=== PATIENT | female | born 1965 | race Caucasian/White ===

== ENCOUNTER 2018-05-15 10:31 | Emergency (ER) | payer OTHER ==
[2018-05-15 12:13] LABS: Urine Blood 2+ (NEG); Urine Glucose NEGATIVE (NEG); Urine Protein NEGATIVE (NEG); Urine Specific Gravity 1.025 (1.005-1.030); Urine pH 5.5 (5.0-7.0)
[2018-05-15 12:14] LABS: Urine Bacteria <20 /HPF (<20)
[2018-05-15 12:15] LABS: Urine Culture Reflex Order NOT NEEDED
[2018-05-15] MEDS ORDERED: ONDANSETRON 4 MG/2 ML VIAL ONE (12:15)
[2018-05-15] MEDS ORDERED: MORPHINE 4 MG/ML SYR ONE (12:15)
[2018-05-15] MEDS ORDERED: NA CHLORIDE 0.9% 0 ML ONE (12:15)
--- NOTE | 2018-05-15 12:16 | RAD REPORT ---
EXAM DESCRIPTION: CT - Stone Protocol - 05/15/2018 11:53 am CLINICAL HISTORY: Flank pain. ABD PAIN COMPARISON: None TECHNIQUE: Axial images were obtained without oral or IV contrast. Lack of contrast limits solid org an and vascular assessment. The [id number] spans the entirety of the system partially obscuring uppermost abdomen and lung bases. Coronal reformatted images were obtained and reviewed. All CT scans are performed using dose optimization technique as appropriate and may include automated exposure control or mA/KV adjustment according to patient size. FINDINGS: The lower lung stratton are clear. The 2.7 cm hepatic lesion superolateral right lobe is likely a cyst. No aggressive liver lesion or bi liary dilatation. Spleen is unremarkable. The pancreas and adrenal glands are normal. No pathologic l ymphadenopathy in the abdomen or pelvis. 5-6 mm stone (700 HU) is present at the left UVJ resulting in mild left hydronephrosis. Additional sm all calculi are present in the left kidney largest measuring 2-3 mm in the inferior calyx. No right-s ided stone or hydronephrosis seen. No bowel obstruction, free air, free fluid or abscess. Normal appendix noted. No significant bony abnormality. IMPRESSION: 5-6 mm stone left UVJ resulting in mild left hydronephrosis. Additional left nephrolithiasis.
[2018-05-15 12:27] LABS: Absolute Lymphocytes (CBC) 1.1 K/uL (0.7-4.9); Absolute Monocytes 0.6 K/uL (0.1-1.3); Absolute Neutrophil 8.1 K/uL (1.8-8.0); Basophils % 0.5 % (0-1.3); Eosinophils % 0.2 % (0-4.4); Hematocrit 41.5 % (36.0-45.0); Lymphocytes % 11.6 % (15.3-44.8); MCH 32.5 pg (27.0-35.0); MCV 95.6 fL (80-100); MPV 8.2 fL (7.6-11.3); Monocytes % 6.2 % (3.3-12.3); RBC Red Blood Cell Count 4.35 M/uL (3.86-4.86)
[2018-05-15] MEDS ORDERED: TAMSULOSIN 0.4 MG SR CAP ONE (12:32)
[2018-05-15] MEDS ORDERED: KETOROLAC 30 MG/ML INJ ONE (12:32)
[2018-05-15] MEDS ORDERED: CEFTRIAXONE/SWI 1gm 1 GM/10 ML SYR ONE (12:33)
[2018-05-15 12:52] LABS: Albumin 4.1 g/dL (3.4-5.0); Bilirubin Direct 0.2 mg/dL (0-0.2); Bilirubin Total 0.5 mg/dL (0.2-1.0); Potassium 3.7 mmol/L (3.5-5.1); Protein, Total 8.4 g/dL (6.4-8.2)
[2018-05-15] MEDS ORDERED: NA CHLORIDE 0.9% 1,000 ML ONE (13:16)
--- NOTE | 2018-05-15 13:42 | EDPHYS ---
Physician Documentation [facility] Name: Dea Owens Age: 52 yrs Sex: Female : 1965 Arrival Date: 05/15/2018 Time: 10:34 Bed 13 Private MD: Elder Key C ED Physician Hieu Hough HPI: 05/15 11:30 This 52 yrs old Female presents to ER via Ambulatory with complaints of jmm Possible Kidney Stone. 11:30 The patient presents with abdominal pain left flank. The symptoms radiate to abdomen. jmm Associated signs and symptoms: Pertinent positives: nausea and vomiting. This is a 52 year old female with a history of hypothyroidism that presents to the ED with left flank pain beginning earlier today. Patient states having multiple episodes of vomiting. Denies fever. Denies previous history of kidney stones. States she recently began a weight loss program. . [employer]: 11:25 LMP N/A - Post-menopause ph Historical: - Allergies: 11:28 No Known Allergies; ph - Home Meds: 11:28 levothyroxine oral [Active]; phentermine oral oral [Active]; ph - PMHx: 11:28 Hypothyroidism; ph - PSHx: 11:28 D \T\ C; Knee surgery; ph - Immunization history:: Adult Immunizations unknown. - Social history:: Smoking status: Patient/guardian denies using tobacco. - Ebola Screening: : No symptoms or risks identified at this time. ROS: 11:47 Constitutional: Negative for fever, chills, and weight loss, Cardiovascular: Negative jmm for chest pain, palpitations, and edema. 11:47 Skin: Negative for injury, rash, and discoloration, Neuro: Negative for headache, weakness, numbness, tingling, and seizure. 11:47 Abdomen/GI: Positive for abdominal pain, nausea and vomiting. 11:47 Back: Positive for flank pain, on the left. 11:47 All other systems are negative. Exam: 11:47 Head/Face: atraumatic. Chest/axilla: Normal chest wall appearance and motion. jmm Cardiovascular: Regular rate and rhythm. No edema appreciated Respiratory: Normal respirations, no respiratory distress appreciated 11:47 Constitutional: The patient appears alert, awake, uncomfortable. 11:47 Abdomen/GI: Inspection: abdomen appears normal, Bowel sounds: normal, Palpation: soft, moderate abdominal tenderness, in the left lower quadrant. 11:47 Back: CVA tenderness, that is mild, is noted on the left. 11:47 Musculoskeletal/extremity: ROM: intact in all extremities. 11:47 Skin: Appearance: Color: normal in color. 11:47 Neuro: Orientation: is normal, Mentation: is normal, Memory: is normal. 11:47 Psych: Behavior/mood is pleasant, cooperative. Vital Signs: 11:25 BP 146 / 100; Pulse 59; Resp 20; Temp 99.2(TE); Pulse Ox 100% on R/A; Weight 84.37 kg; ph Height 5 ft. 3 in. (160.02 cm); Pain 9/10; 12:25 BP 156 / 80; Pulse 43; Resp 16; Pulse Ox 100% on R/A; dh3 13:04 BP 137 / 78; Pulse 49; Resp 19; Pulse Ox 98% on R/A; dh3 14:00 BP 121 / 76; Pulse 50; Resp 18; Pulse Ox 100% on R/A; rb1 14:45 BP 132 / 75; Pulse 46; Resp 15; Pulse Ox 100% on R/A; rb1 11:25 Body Mass Index 32.95 (84.37 kg, 160.02 cm) ph MDM: 11:30 Patient medically screened. [facility] 12:42 Data reviewed: vital signs, nurses notes. rene 13:41 Data reviewed: lab test result(s), radiologic studies, CT scan. Counseling: I had a [facility] detailed discussion with the patient and/or guardian regarding: the historical points, exam findings, and any diagnostic results supporting the discharge/admit diagnosis, radiology results, the need for outpatient follow up, to return to the emergency department if symptoms worsen or persist or if there are any questions or concerns that arise at home. 13:41 Response to treatment: the patient's symptoms have markedly improved after treatment. rene 13:41 ED course: Patient states feeling much better and her pain is relieved. patient advised [facility] to follow up with urology and given strict return precautions. the patient understood and agree with the plan of care. . 05/15 11:35 Order name: Amylase, Serum; Complete Time: 12:52 [facility] 05/15 11:35 Order name: Basic Metabolic Panel; Complete Time: 12:52 [facility] 05/15 11:35 Order name: CBC with Diff; Complete Time: 12:52 [facility] 05/15 11:35 Order name: Creatinine for Radiology; Complete Time: 12:52 [facility] 05/15 11:35 Order name: Hepatic Function; Complete Time: 12:52 [facility] 05/15 11:35 Order name: Lipase; Complete Time: 12:52 [facility] 05/15 11:35 Order name: Urine Microscopic Only; Complete Time: 12:19 [facility] 05/15 11:35 Order name: CT Stone Protocol; Complete Time: 12:19 [facility] 05/15 11:51 Order name: Urine Dipstick--Ancillary (enter results); Complete Time: 12:19 05/15 11:35 Order name: IV Saline Lock; Complete Time: 12:15 [facility] 05/15 11:35 Order name: Labs collected and sent; Complete Time: 12:15 [facility] 05/15 11:35 Order name: Urine Dipstick-Ancillary (obtain specimen); Complete Time: 12:15 [facility] Administered Medications: 12:15 Drug: morphine 4 mg Route: IVP; Site: left antecubital; hb 12:30 Follow up: Response: No adverse reaction; Pain is unchanged, physician notified rb1 12:15 Drug: Zofran 4 mg Route: IVP; Site: left antecubital; hb 12:30 Follow up: Response: No adverse reaction; Nausea is decreased rb1 12:15 Drug: NS 0.9% 1000 ml Route: IV; Rate: 1 bolus; Site: left antecubital; hb 14:09 Follow up: IV Status: Completed infusion rb1 12:30 Drug: Ketorolac 30 mg Route: IVP; Site: left antecubital; rb1 12:45 Follow up: Response: No adverse reaction; Pain is decreased rb1 12:30 Drug: Flomax 0.4 mg Route: PO; rb1 13:00 Follow up: Response: No adverse reaction rb1 12:30 Drug: Rocephin 1 grams Route: IV; Rate: calculated rate; Site: left antecubital; rb1 12:39 CANCELLED (wrong order): Rocephin - (cefTRIAXone) 1 grams IVPB once over 30 mins; (mix rb1 in 50 mL NS) 14:52 CANCELLED (Provider discretion; ok to discharge): NS 0.9% 1000 ml IV at 1 bolus Per rb1 protocol; 1000 mL bolus Disposition: 05/16 06:42 Co-signature as Attending Physician, Hieu Hough MD I agree with the assessment and bridgett plan of care. Disposition: 05/15/18 13:42 Discharged to Home. Impression: Calculus of kidney and ureter, Urinary tract infection, site not specified. - Condition is Stable. - Discharge Instructions: Kidney Stones, Urinary Tract Infection, Adult. - Prescriptions for Zofran ODT 4 mg Oral tablet,disintegrating - place 1 tablet by TRANSLINGUAL route every 4-6 hours; 20 tablet. Cephalexin 500 mg Oral Capsule - take 1 capsule by ORAL route 2 times per day for 10 days; 20 capsule. Tylenol- Codeine #3 300-30 mg Oral Tablet - take 1 tablet by ORAL route every 6 hours As needed; 20 tablet. Flomax 0.4 mg Oral Capsule, Sust. Release 24 hr - take 1 capsule by ORAL route once daily 1/2 hour following the same meal each day; 30 capsule. - Medication Reconciliation Form, Thank You Letter, Antibiotic Education, Prescription Opioid Use form. - Follow up: Kiley Benntet MD; When: 2 - 3 days; Reason: Recheck today's complaints, Continuance of care, Re-evaluation by your physician. Signatures: Dispatcher [employer] EDMS Hieu Hough MD MD cha Mickail, Joel, PA PA [facility] Dea Camejo, RN RN Guera Epperson, RN RN rb1 Kita Centeno RN RN Corrections: (The following items were deleted from the chart) 05/15 12:39 12:21 Rocephin - (cefTRIAXone) 1 grams IVPB once over 30 mins; (mix in 50 mL NS) rb1 ordered. [facility] 12:39 12:38 Rocephin - (cefTRIAXone) 1 grams IVPB once over 30 mins; (mix in 50 mL NS) given. rb1 [facility] 12:39 12:39 Rocephin - (cefTRIAXone) 1 grams IVPB once over 30 mins; (mix in 50 mL NS) rb1 ordered. [facility] 14:52 12:53 NS 0.9% 1000 ml IV at 1 bolus Per protocol; [address] [facility] rb1 14:52 14:51 NS 0.9% 1000 ml IV at 1 bolus Per protocol; 1000 mL bolus ordered. rb1 rb1 14:57 13:42 05/15/2018 13:42 Discharged to Home. Impression: Calculus of kidney and ureter; rb1 Urinary tract infection, site not specified. Condition is Stable. Forms are Medication Reconciliation Form, Thank You Letter, Antibiotic Education, Prescription Opioid Use. Follow up: Kiley Bennett; When: 2 - 3 days; Reason: Recheck today's complaints, Continuance of care, Re-evaluation by your physician. rene
--- NOTE | 2018-05-15 13:42 | ER ---
Nurse's Notes [facility] Name: Dea Owens Age: 52 yrs Sex: Female : 1965 Arrival Date: 05/15/2018 Time: 10:34 Bed 13 Private MD: Elder Key C Diagnosis: Calculus of kidney and ureter;Urinary tract infection, site not specified Presentation: 05/15 11:23 Presenting complaint: Patient states: " I started getting uncomfortable when I was in [place] and then I started vomiting. I've never had a kidney stone before but I think that may be what it is." Pt reports R sided back pain that radiates to R flank and RLQ, also reports N/V. Transition of care: patient was not received from another setting of care. Onset of symptoms was May 15, 2018. Risk Assessment: Do you want to hurt yourself or someone else? Patient reports no desire to harm self or others. Initial Sepsis Screen: Does the patient meet any 2 criteria? No. Patient's initial sepsis screen is negative. Does the patient have a suspected source of infection? No. Patient's initial sepsis screen is negative. Care prior to arrival: None. 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 - Social history:: Smoking status: Patient/guardian denies using tobacco. - Ebola Screening: : No symptoms or risks identified at this time. Screenin:45 Abuse screen: Denies threats or abuse. Denies injuries from another. Nutritional hb screening: No deficits noted. Tuberculosis screening: No symptoms or risk factors identified. Fall Risk None identified. Assessment: 11:45 General: Appears in no apparent distress. uncomfortable, Behavior is calm, cooperative. hb Pain: Pain currently is 10 out of 10 on a pain scale. Neuro: Level of Consciousness is awake, alert, obeys commands, Oriented to person, place, time, situation. Cardiovascular: Heart tones S1 S2 present Capillary refill < 3 seconds Patient's skin is warm and dry. Respiratory: Airway is patent Trachea midline Respiratory effort is even, unlabored, Respiratory pattern is regular, symmetrical, Breath sounds are clear bilaterally. GI: Abdomen is flat, Bowel sounds present X 4 quads. Abd is soft and non tender X 4 quads. : Reports urinary frequency. EENT: No signs and/or symptoms were reported regarding the EENT system. Derm: Skin is pink, warm \\T\\ dry. Musculoskeletal: Reports pain in low back that radiates to lower abdomen. 12:45 Reassessment: Patient appears in no apparent distress at this time. Patient and/or rb1 family updated on plan of care and expected duration. Pain level reassessed. Patient is alert, oriented x 3, equal unlabored respirations, skin warm/dry/pink. 13:45 Reassessment: Patient appears in no apparent distress at this time. Patient states rb1 feeling better. Patient states symptoms have improved. 14:45 Reassessment: Patient appears in no apparent distress at this time. Patient and/or rb1 family updated on plan of care and expected duration. Pain level reassessed. Patient is alert, oriented x 3, equal unlabored respirations, skin warm/dry/pink. at bedside. Vital Signs: 11:25 BP 146 / 100; Pulse 59; Resp 20; Temp 99.2(TE); Pulse Ox 100% on R/A; Weight 84.37 kg; ph Height 5 ft. 3 in. (160.02 cm); Pain 9/10; 12:25 BP 156 / 80; Pulse 43; Resp 16; Pulse Ox 100% on R/A; dh3 13:04 BP 137 / 78; Pulse 49; Resp 19; Pulse Ox 98% on R/A; dh3 14:00 BP 121 / 76; Pulse 50; Resp 18; Pulse Ox 100% on R/A; rb1 14:45 BP 132 / 75; Pulse 46; Resp 15; Pulse Ox 100% on R/A; rb1 11:25 Body Mass Index 32.95 (84.37 kg, 160.02 cm) ph ED Course: 10:34 Patient arrived in ED. sb2 10:35 Elder Key MD is Private Physician. sb2 11:22 Abdifatah Rojas PA is PHCP. jmm 11:22 Hieu Hough MD is Attending Physician. jmm 11:25 Triage completed. ph 11:28 Arm band placed on. ph 11:35 Kita Centeno, ALFIE is Primary Nurse. hb 11:52 CT completed. Patient tolerated procedure well. Patient moved back from CT. kw1 11:53 CT Stone Protocol In Process Unspecified. EDMS 12:00 Patient has correct armband on for positive identification. Placed in gown. Bed in low rb1 position. Call light in reach. Side rails up X 1. Pulse ox on. NIBP on. 12:15 Inserted saline lock: 22 gauge in left antecubital area, using aseptic technique. Blood rb1 collected. 13:42 Kiley Bennett MD is Referral Physician. [facility] 14:56 No provider procedures requiring assistance completed. IV discontinued, intact, rb1 bleeding controlled, No redness/swelling at site. Pressure dressing applied. Administered Medications: 12:15 Drug: morphine 4 mg Route: IVP; Site: left antecubital; hb 12:30 Follow up: Response: No adverse reaction; Pain is unchanged, physician notified rb1 12:15 Drug: Zofran 4 mg Route: IVP; Site: left antecubital; hb 12:30 Follow up: Response: No adverse reaction; Nausea is decreased rb1 12:15 Drug: NS 0.9% 1000 ml Route: IV; Rate: 1 bolus; Site: left antecubital; hb 14:09 Follow up: IV Status: Completed infusion rb1 12:30 Drug: Ketorolac 30 mg Route: IVP; Site: left antecubital; rb1 12:45 Follow up: Response: No adverse reaction; Pain is decreased rb1 12:30 Drug: Flomax 0.4 mg Route: PO; rb1 13:00 Follow up: Response: No adverse reaction rb1 12:30 Drug: Rocephin 1 grams Route: IV; Rate: calculated rate; Site: left antecubital; rb1 12:39 CANCELLED (wrong order): Rocephin - (cefTRIAXone) 1 grams IVPB once over 30 mins; (mix rb1 in 50 mL NS) 14:52 CANCELLED (Provider discretion; ok to discharge): NS 0.9% 1000 ml IV at 1 bolus Per rb1 protocol; 1000 mL bolus Outcome: 13:42 Discharge ordered by . jmm 14:56 Discharged to home ambulatory, with family. rb1 14:56 Condition: stable 14:56 Discharge instructions given to patient, Instructed on discharge instructions, follow up and referral plans. medication usage, Demonstrated understanding of instructions, follow-up care, medications, Prescriptions given X 4. 14:57 Patient left the ED. rb1 Signatures: Dispatcher [employer] EDMS Abdifatah Rojas PA PA jmm Hall, Patricia, RN RN ph Barber, Rebecca RN RN rb1 Kita Centeno RN RN Aparna Ojeda 3 Gayla Lopez 1 Karen Rowley sb2 Corrections: (The following items were deleted from the chart) 12:39 12:30 Rocephin - (cefTRIAXone) 1 grams IVPB in left antecubital over 30 mins rb1 rb1
== END 2018-05-15 14:57 | disposition home or self-care (01) ==
LOC: ER 10:31
DX: N20.2 Calculus of kidney with calculus of ureter (principal); N39.0 Urinary tract infection, site not specified; E03.9 Hypothyroidism, unspecified
CPT/HCPCS: 36415; 74176; 76377; 80048; 80076; 81003; 81015; 82150; 83690; 85025; 96361; 96374; 96375; 99284; J0696; J2405; J7030

== ENCOUNTER 2024-11-10 07:13 | Emergency (ER) | payer OTHER ==
[2024-11-10] MEDS ORDERED: ONDANSETRON 4 MG/2 ML VIAL ONE (07:35)
[2024-11-10] MEDS ORDERED: KETOROLAC 30 MG/ML INJ ONE (07:35)
[2024-11-10] MEDS ORDERED: FAMOTIDINE 20 MG/2 ML VIAL IV ONE (07:36)
[2024-11-10] MEDS ORDERED: MORPHINE 2 MG/ML SYR ONE (07:36)
[2024-11-10] MEDS ORDERED: NA CHLORIDE 0.9% 1,000 ML ONE (07:36)
[2024-11-10 07:52] LABS: Specific Gravity 1.021 (1.005-1.030); Urine Bacteria <20 /HPF (<20); Urine Bilirubin NEGATIVE (Negative); Urine Blood 1+ (Negative); Urine Clarity Extremely Turbid (Clear); Urine Color Yellow (Yellow); Urine Culture Reflex Order NOT NEEDED; Urine Glucose NEGATIVE (Negative); Urine Ketones TRACE (Negative); Urine Microscopic Reflex YN ORDER UMIC; Urine Mucus Slight /HPF (None Seen); Urine Nitrite NEGATIVE (Negative); Urine Protein NEGATIVE (Negative); Urine RBC <5 /HPF (None Seen); Urine Urobilinogen Normal (Normal); Urine WBC <5 /HPF (<5); Urine pH 5.5 (5.0-7.0)
[2024-11-10 08:04] LABS: Absolute Lymphocytes (CBC) 1.3 K/uL (0.7-4.9); Absolute Monocytes 0.4 K/uL (0.1-1.3); Basophils % 0.5 % (0-1.3); Eosinophils % 0.7 % (0-4.4); Hematocrit 40.1 % (36.0-45.0); Hemoglobin 13.4 g/dL (12.0-15.0); Lymphocytes % 27.9 % (15.3-44.8); MCH 32.9 pg (27.0-35.0); MCHC 33.5 g/dL (32.0-36.0); MCV 98.4 fL (80-100); MPV 7.5 fL (7.6-11.3); Monocytes % 8.3 % (3.3-12.3); Neutrophils % 62.6 % (41.7-73.7); Platelets 249 thou/uL (152-406); RBC Red Blood Cell Count 4.07 M/uL (3.86-4.86); Red Cell Distribution Width 13.1 % (12.1-15.2)
[2024-11-10 08:06] LABS: Albumin 3.5 g/dL (3.4-5.0); Anion Gap 8.9 mEq/L (5.0-15.0); Bilirubin Total 0.4 mg/dL (0.2-1.0); Globulin 3.5 g/dL (2.3-3.5); Potassium 3.9 mEq/L (3.5-5.1)
--- NOTE | 2024-11-10 08:34 | RAD REPORT ---
EXAMINATION: CT ABDOMEN AND PELVIS WITH CONTRAST CLINICAL INDICATION: ABD PAIN TECHNIQUE: CT abdomen and pelvis was performed, after the administration of IV contrast, [facility]. Axial, sagittal and coronal reconstructions were obtained. One or more of the following dose reduction techniques were used: Automated exposure control, adjustment of the mA and k V according to patient size, and iterative reconstruction. Unless otherwise specified, incidental findings do not require dedicated imaging follow-up. COMPARISON: No prior exam. FINDINGS: LOWER CHEST: The visualized lung bases are clear. LIVER: Normal in size and contour. 22 mm benign cyst lateral right lobe of the liver. Grossly unremar kable gallbladder. SPLEEN: Normal size. No focal lesion. PANCREAS: No mass, ductal dilation, or chi-pancreatic fluid. ADRENALS: Normal; no mass. KIDNEYS: Normal size and contour. No hydronephrosis. GASTROINTESTINAL TRACT: No evidence of free air, significant intra-abdominal free fluid, bowel obstru ction or abscess. Moderate stool is retained throughout the colon. APPENDIX: Normal appendix. LYMPH NODES: No lymphadenopathy. MUSCULOSKELETAL: Moderate L5-S1 degenerative change. ADDITIONAL FINDINGS: Prominent uterus containing several presumed cystic lesions may be degenerating fibroids, but assessment is limited on CT. IMPRESSION: No acute abnormalities seen in the abdomen or pelvis. Uterine findings may be better assessed by nonemergent pelvic ultrasound follow-up.
--- NOTE | 2024-11-10 09:43 | EDPHYS ---
Physician Documentation [facility] Name: Dea Owens Age: 59 yrs Sex: Female : 1965 Arrival Date: 11/10/2024 Time: 07:13 Bed 23 Private MD: ANTONI Physician Hieu Hough HPI: 11/10 07:30 This 59 yrs old Female presents to ER via Ambulatory with complaints of bridgett Abdominal Pain, Nausea. 07:30 The patient presents to the emergency department with nausea, abdominal pain, of the bridgett posterior aspect of right lateral abdomen, anterior aspect of right lateral abdomen and right lower quadrant. Onset: The symptoms/episode began/occurred 1 week(s) ago. Possible causes: unknown. The symptoms are aggravated by nothing. The symptoms are alleviated by nothing. Associated signs and symptoms: The patient has no apparent associated signs or symptoms. Severity of symptoms: At their worst the symptoms were moderate in the emergency department the symptoms are unchanged. The patient has not experienced similar symptoms in the past. Historical: - Allergies: 07:21 No Known Allergies; ss - Home Meds: 07:21 levothyroxine oral [Active]; Flagyl [Active]; Cipro Oral [Active]; ss - PMHx: 07:21 Hypothyroidism; ss - Immunization history:: Adult Immunizations up to date, Client reports receiving the 2nd dose of the Covid vaccine, Last tetanus immunization: unknown. - Infectious Disease History:: Denies. - Social history:: Smoking status: Patient denies any tobacco usage or history of. ROS: 07:31 Constitutional: Negative for fever, chills, and weight loss, Eyes: Negative for injury, bridgett pain, redness, and discharge, ENT: Negative for injury, pain, and discharge, Neck: Negative for injury, pain, and swelling, Cardiovascular: Negative for chest pain, palpitations, and edema, Respiratory: Negative for shortness of breath, cough, wheezing, and pleuritic chest pain, : Negative for injury, bleeding, discharge, and swelling, MS/Extremity: Negative for injury and deformity, Skin: Negative for injury, rash, and discoloration, Neuro: Negative for headache, weakness, numbness, tingling, and seizure, Psych: Negative for depression, anxiety, suicide ideation, homicidal ideation, and hallucinations, Allergy/Immunology: Negative for hives, rash, and allergies, Endocrine: Negative for neck swelling, polydipsia, polyuria, polyphagia, and marked weight changes, Hematologic/Lymphatic: Negative for swollen nodes, abnormal bleeding, and unusual bruising, 07:31 Abdomen/GI: Positive for abdominal pain, of the posterior aspect of right lateral abdomen and right lower quadrant, Exam: 07:31 Constitutional: This is a well developed, well nourished patient who is awake, alert, bridgett and in no acute distress. Head/Face: Normocephalic, atraumatic. Eyes: Pupils equal round and reactive to light, extra-ocular motions intact. Lids and lashes normal. Conjunctiva and sclera are non-icteric and not injected. Cornea within normal limits. Periorbital areas with no swelling, redness, or edema. ENT: Nares patent. No nasal discharge, no septal abnormalities noted. Tympanic membranes are normal and external auditory canals are clear. Oropharynx with no redness, swelling, or masses, exudates, or evidence of obstruction, uvula midline. Mucous membranes moist. Neck: Trachea midline, no thyromegaly or masses palpated, and no cervical lymphadenopathy. Supple, full range of motion without nuchal rigidity, or vertebral point tenderness. No Meningismus. Chest/axilla: Normal chest wall appearance and motion. Nontender with no deformity. No lesions are appreciated. Cardiovascular: Regular rate and rhythm with a normal S1 and S2. No gallops, murmurs, or rubs. Normal PMI, no JVD. No pulse deficits. Respiratory: Lungs have equal breath sounds bilaterally, clear to auscultation and percussion. No rales, rhonchi or wheezes noted. No increased work of breathing, no retractions or nasal flaring. Female : Normal external genitalia. Skin: Warm, dry with normal turgor. Normal color with no rashes, no lesions, and no evidence of cellulitis. MS/ Extremity: Pulses equal, no cyanosis. Neurovascular intact. Full, normal range of motion., bilateral aka Neuro: Awake and alert, GCS 15, oriented to person, place, time, and situation. Cranial nerves II-XII grossly intact. Motor strength 5/5 in all extremities. Sensory grossly intact. Cerebellar exam normal. Normal gait. Psych: Awake, alert, with orientation to person, place and time. Behavior, mood, and affect are within normal limits. 07:31 Abdomen/GI: Inspection: abdomen appears normal, Bowel sounds: normal, Palpation: mild abdominal tenderness, in the posterior aspect of right lateral abdomen and right lower quadrant, Liver: no appreciated palpable abnormalities, Hernia: not appreciated, Vital Signs: 07:29 BP 119 / 82; Pulse 81; Resp 15; Temp 97.9(O); Pulse Ox 98% on R/A; Weight 64.86 kg; ss Height 5 ft. 3 in. ; Pain 4/10; 10:20 BP 118 / 79; Pulse 75; Resp 18; Pulse Ox 100% ; Pain 0/10; kb3 07:29 Body Mass Index 25.33 (64.86 kg, 160.02 cm) ss 07:29 Pain Scale: Adult ss 10:20 Pain Scale: Adult kb3 MDM: 07:23 Medical Screening Exam initiated bridgett 07:32 Differential diagnosis: nephrolithiasis, pyelonephritis, UTI, diverticulitis, bridgett pancreatitis, Nonspecific abd pain, cholecystitis, pancreatitis, appendicitis, diverticulitis, viral gastroenteritis, gastroenteritis. Data reviewed: vital signs, nurses notes, lab test result(s), EKG, radiologic studies, CT scan. Consideration of Admission/Observation Escalation of care including admission/observation considered. I considered the following discharge prescriptions or medication management in the emergency department Medications were administered in the Emergency Department. See MAR. Independent interpretation of the following test(s) in the Emergency Department CT Scan: My interpretation is ct ab/ pel. Test considered but Not performed: Ultrasound no abd usg. Historians other than the Patient: pt well informed. Care significantly affected by the following chronic conditions: hypothyroid. 09:44 ED course: DR CROUCH , HE GAVE HER CIPRO, NO ABX . 11/10 07:23 Order name: CBC with Diff; Complete Time: 09:41 11/10 07:23 Order name: CMP; Complete Time: 09:41 11/10 07:23 Order name: Lipase; Complete Time: 09:41 11/10 07:23 Order name: Urinalysis w/ reflexes; Complete Time: 09:41 11/10 07:23 Order name: CT Abd/Pelvis - IV Contrast Only; Complete Time: 09:41 11/10 07:23 Order name: IV Saline Lock; Complete Time: 07:43 11/10 07:23 Order name: Labs collected and sent; Complete Time: 07:43 bridgett Administered Medications: 07:35 Drug: Ondansetron IVP 4 mg IVP once; over 2 minutes Route: IVP; Site: left antecubital; ko1 10:25 Follow up: Response: No adverse reaction; Nausea is decreased kb3 07:35 Drug: NS 0.9% IV 1000 ml IV at 1 bolus Per protocol; to be given as a bolus over 60 ko1 minutes Route: IV; Rate: 1 bolus; Site: left antecubital; 10:04 Follow up: IV Status: Completed infusion; IV Intake: 1000ml ss 10:25 Follow up: Response: No adverse reaction kb3 07:37 Drug: Famotidine IVP 20 mg IVP once; dilute with 10 mL 0.9% NaCl; give over 2 minutes ko1 Route: IVP; Site: left antecubital; 10:04 Follow up: Response: No adverse reaction; Pain is decreased ss 07:40 Drug: Ketorolac IVP 15 mg IVP once Route: IVP; Site: left antecubital; ko1 10:19 Follow up: Response: No adverse reaction; Pain is decreased kb3 07:42 Drug: morphine IVP or IV 2 mg IVP once over 4 mins Route: IVP; Infused Over: 4 mins; ko1 Site: left antecubital; 10:04 Follow up: Response: No adverse reaction; Pain is decreased; RASS: Alert and Calm (0) ss 10:19 Not Given (Patient Refused): morphineor iv 2 mg IVP once over 4 mins kb3 10:19 Drug: Rocephin IV 1 grams IV at per protocol once; Given slow IV push per pharmacy kb3 instructions Route: IV; Rate: per protocol; Site: left antecubital; 10:19 Follow up: IV Status: Completed infusion; IV Intake: 10ml kb3 10:24 Follow up: Response: No adverse reaction kb3 Disposition Summary: 11/10/24 09:43 Discharge Ordered Notes: Location: Home bridgett Problem: new bridgett Symptoms: have improved bridgett Condition: Stable bridgett Diagnosis - UTI/ Urinary tract infection, site not specified bridgett - Abdominal tenderness bridgett - Leiomyoma of uterus, unspecified bridgett Followup: bridgett - With: Private Physician - When: 2 - 3 days - Reason: Recheck today's complaints, Continuance of care, Re-evaluation by your physician Followup: bridgett - With: Elder Crouch MD - When: 2 - 3 days - Reason: Recheck today's complaints, Re-evaluation by your physician Discharge Instructions: - Discharge Summary Sheet bridgett - Abdominal Pain, Adult bridgett - Dysuria bridgett - Urinary Tract Infection, Adult bridgett - Urinary Tract Infection, Adult, [id number] bridgett - Abdominal Pain, Adult, [id number] Forms: - Medication Reconciliation Form bridgett - Antibiotic Education bridgett - Prescription Opioid Use bridgett - Patient Portal Instructions [facility] - Leadership Thank You Letter [facility] Prescriptions: - Zofran 4 mg Oral Tablet - take 1 tablet ORAL route every 12 hours As needed; 20 tablet; Refills: 0, [facility] Product Selection Permitted - dicyclomine 20 mg Oral tablet - take 1 tablet ORAL route 4 times per day; 28 tablet; Refills: 0, Product [facility] Selection Permitted Signatures: Dispatcher [employer] Hieu Morales MD MD cha Blanchard, Shelby, RN RN ss Sarah Vasquez RN RN kb3 Rosio Mendieta RN RN ko1 Corrections: (The following items were deleted from the chart) 07:24 07:24 Abdomen Pelvis W [id number] ordered. EDNY EDMS
--- NOTE | 2024-11-10 09:43 | ER ---
Nurse's Notes [facility] Name: Dea Owens Age: 59 yrs Sex: Female : 1965 Arrival Date: 11/10/2024 Time: 07:13 Bed 23 Private MD: Diagnosis: UTI/ Urinary tract infection, site not specified;Abdominal tenderness;Leiomyoma of uterus, unspecified Presentation: 11/10 07:20 Chief complaint: Patient states: Episodic RLQ pain and nausea x [address] Key in ss office yesterday who prescribed Flagyl and Cipro, but pt states she woke up feeling worse this morning. Denies fever. Coronavirus screen: Client denies travel out of the [place] in the last 14 days. Ebola Screen: Patient denies exposure to infectious person. Patient denies travel to an Ebola-affected area in the 21 days before illness onset. Initial Sepsis Screen: Does the patient meet any 2 criteria? No. Patient's initial sepsis screen is negative. Does the patient have a suspected source of infection? No. Patient's initial sepsis screen is negative. Risk Assessment: Do you want to hurt yourself or someone else? Patient reports no desire to harm self or others. Onset of symptoms was November 03, 2024. 07:20 Method Of Arrival: Ambulatory 07:20 Acuity: CARLI 3 Historical: - Allergies: 07:21 No Known Allergies; ss - Home Meds: 07:21 levothyroxine oral [Active]; Flagyl [Active]; Cipro Oral [Active]; - PMHx: 07:21 Hypothyroidism; - Immunization history:: Adult Immunizations up to date, Client reports receiving the 2nd dose of the Covid vaccine, Last tetanus immunization: unknown. - Infectious Disease History:: Denies. - Social history:: Smoking status: Patient denies any tobacco usage or history of. Screenin:30 [facility] ED Fall Risk Assessment (Adult) History of falling in the last 3 months, kb3 including since admission No falls in past 3 months (0 pts) Confusion or Disorientation No (0 pts) Intoxicated or Sedated No (0 pts) Impaired Gait No (0 pts) Mobility Assist Device Used No (0 pt) Altered Elimination No (0 pt) Score/Fall Risk Level 0 - 2 = Low Risk Oriented to surroundings. Abuse screen: Denies threats or abuse. Denies injuries from another. Nutritional screening: No deficits noted. Tuberculosis screening: No symptoms or risk factors identified. Assessment: 09:30 General: Appears in no apparent distress. Behavior is calm, cooperative. Pain: Denies kb3 pain. 09:30 GI: Abd is soft and non tender Patient currently denies abdominal pain, nausea, Pt kb3 reports pain and nausea re improved with medication. Vital Signs: 07:29 BP 119 / 82; Pulse 81; Resp 15; Temp 97.9(O); Pulse Ox 98% on R/A; Weight 64.86 kg; ss Height 5 ft. 3 in. ; Pain 4/10; 10:20 BP 118 / 79; Pulse 75; Resp 18; Pulse Ox 100% ; Pain 0/10; kb3 07:29 Body Mass Index 25.33 (64.86 kg, 160.02 cm) ss 07:29 Pain Scale: Adult ss 10:20 Pain Scale: Adult kb3 ED Course: 07:15 Patient arrived in ED. im 07:21 Triage completed. ss 07:21 Arm band placed on right wrist. ss 07:23 Hieu Hough MD is Attending Physician. bridgett 07:42 Initial lab(s) drawn, by nj, sent to lab. Urine collected: clean catch specimen, clear. kb4 Inserted saline lock: 20 gauge in left antecubital area, using aseptic technique. Blood collected. Flushed with 10 mL NS. 07:43 CBC with Diff Sent. kb4 07:43 CMP Sent. kb4 07:43 Lipase Sent. kb4 07:43 Urinalysis w/ reflexes Sent. kb4 08:25 CT Abd/Pelvis - IV Contrast Only In Process Unspecified. EDMS 09:30 Patient has correct armband on for positive identification. Provided Education on: kb3 Educated regarding change of room and care, medications ordered. 09:42 Elder Key MD is Referral Physician. bridgett 10:15 No provider procedures requiring assistance completed. IV discontinued, intact, kb3 bleeding controlled, No redness/swelling at site. Pressure dressing applied. Administered Medications: 07:35 Drug: Ondansetron IVP 4 mg IVP once; over 2 minutes Route: IVP; Site: left antecubital; ko1 10:25 Follow up: Response: No adverse reaction; Nausea is decreased kb3 07:35 Drug: NS 0.9% IV 1000 ml IV at 1 bolus Per protocol; to be given as a bolus over 60 ko1 minutes Route: IV; Rate: 1 bolus; Site: left antecubital; 10:04 Follow up: IV Status: Completed infusion; IV Intake: 1000ml ss 10:25 Follow up: Response: No adverse reaction kb3 07:37 Drug: Famotidine IVP 20 mg IVP once; dilute with 10 mL 0.9% NaCl; give over 2 minutes ko1 Route: IVP; Site: left antecubital; 10:04 Follow up: Response: No adverse reaction; Pain is decreased ss 07:40 Drug: Ketorolac IVP 15 mg IVP once Route: IVP; Site: left antecubital; ko1 10:19 Follow up: Response: No adverse reaction; Pain is decreased kb3 07:42 Drug: morphine IVP or IV 2 mg IVP once over 4 mins Route: IVP; Infused Over: 4 mins; ko1 Site: left antecubital; 10:04 Follow up: Response: No adverse reaction; Pain is decreased; RASS: Alert and Calm (0) ss 10:19 Not Given (Patient Refused): morphineor iv 2 mg IVP once over 4 mins kb3 10:19 Drug: Rocephin IV 1 grams IV at per protocol once; Given slow IV push per pharmacy kb3 instructions Route: IV; Rate: per protocol; Site: left antecubital; 10:19 Follow up: IV Status: Completed infusion; IV Intake: 10ml kb3 10:24 Follow up: Response: No adverse reaction kb3 Medication: 09:30 VIS not applicable for this client. kb3 Intake: 10:04 IV: 1000ml; Total: 1000ml. ss 10:19 IV: 10ml; Total: 1010ml. kb3 Outcome: 09:43 Discharge ordered by MD. urias 10:26 Patient left the ED. kb3 Signatures: Dispatcher [employer] EDMS Hieu Hough MD MD cha Calderon, Audri, RN RN aa5 Valerie Erazo RN RN ss Sarah Vasquez RN RN kb3 Rosio Mendieta RN RN ko1 Jennifer Calderon Kayla kb4 Corrections: (The following items were deleted from the chart) 19:35 07:25 Mary Cai, ALFIE is Primary Nurse. aa5 aa5
[2024-11-10] MEDS ORDERED: CEFTRIAXONE 1000 MG/VIAL ONE (10:07)
[2024-11-11 02:37] VITALS: TEMP 97.9
[2024-11-11 02:38] VITALS: BP 118/79; O2SAT 100
== END 2024-11-10 10:26 | disposition home or self-care (01) ==
LOC: ER 07:13
DX: N39.0 Urinary tract infection, site not specified (principal); D25.9 Leiomyoma of uterus, unspecified
CPT/HCPCS: 96361; 85025; 81001; 36415; 83690; 80053; 74177; 96375; 96374; 99284; Q9967; J2270; J2405; J7030; J0696